=== PATIENT | male | born 2000 | race Caucasian/White ===

== ENCOUNTER 2019-11-11 14:57 | Emergency (ER) | payer MEDICAID, OTHER ==
[~2019-11-11] VITALS: Ht 167.6 cm; Wt 54.5 kg
[~2019-11-11 14:57] MED LIST: NOCURR
[2019-11-11 15:38] VITALS: BP 122/86
[2019-11-11] MEDS ORDERED: METHOCARBAMOL 500 MG TABLET PO ONE (15:45)
[2019-11-11] MEDS ORDERED: KETOROLAC TROMETHAMINE 10 MG TABLET PO ONE (15:45)
== END 2019-11-11 15:52 | disposition home or self-care (01) ==
LOC: EMS 15:02
DX: S16.1XXA Strain of muscle, fascia and tendon at neck level, initial encounter (principal); S80.11XA Contusion of right lower leg, initial encounter; V49.9XXA Car occupant (driver) (passenger) injured in unspecified traffic accident, initial encounter; Y93.89 Activity, other specified; Y92.89 Other specified places as the place of occurrence of the external cause; Y99.8 Other external cause status